=== PATIENT | male | born 1985 | race African-American/Black ===

== ENCOUNTER 2019-07-10 19:28 | Emergency (ER) | payer BC, OTHER ==
[~2019-07-10] VITALS: Ht 180.3 cm; Wt 79.4 kg
[2019-07-10 19:34] VITALS: Ht 180.3 cm; Wt 79.4 kg
[2019-07-10 20:33] LABS: BASOPHIL % 0.6 % (0-2); PLATELET COUNT 269 x10^3mcL (130-400); RED CELL DISTRIBUTION WIDTH 13.7 % (11.5-14.5)
[2019-07-10 20:37] LABS: CALCIUM 9.1 mg/dL (8.5-10.1); CARBON DIOXIDE 30.4 mmol/L (21-32); CHLORIDE SERUM 102 mmol/L (98-107); CREATININE SERUM 0.9 mg/dL (0.7-1.3); GFR1 > 60 mL/min; GLUCOSE SERUM 81 mg/dL (74-106); POTASSIUM SERUM 3.9 mmol/L (3.5-5.1); SODIUM SERUM 140 mmol/L (136-145)
[2019-07-10 20:41] LABS: ALBUMIN 4.2 g/dL (3.4-5.0); ALKALINE PHOSPHATASE 70 U/L (46-116); ALT/SGPT 23 U/L (16-63); AMYLASE 66 U/L (25-115); AST/SGOT 9 U/L (15-37); BILIRUBIN TOTAL 0.29 mg/dL (0.20-1.00); CHOLESTEROL 182 mg/dL (<200); HDL CHOLESTEROL 59 mg/dL (40-60); LIPASE 209 IU/L (73-393); TOTAL PROTEIN, SERUM 7.4 g/dL (6.4-8.2)
[2019-07-10 20:52] LABS: microscopic required? NO
[2019-07-10 20:57] LABS: UA SPECIFIC GRAVITY 1.025 (1.005-1.035); urine erythrocyte NEGATIVE (NEGATIVE)
[2019-07-10 21:09] LABS: AMPHETAMINE QUAL UR NONE DETECTED (See below)
[2019-07-10 22:51] VITALS: BP 133/89
== END 2019-07-10 22:51 | disposition home or self-care (01) ==
LOC: ED 19:28
PROVIDERS: Emergency Medicine
DX: R07.89 Other chest pain (principal); R42 Dizziness and giddiness; E78.00 Pure hypercholesterolemia, unspecified; F12.20 Cannabis dependence, uncomplicated
CPT/HCPCS: 36415; 83880; 85378; G0480